=== PATIENT | female | born 1950 | race Caucasian/White ===

== ENCOUNTER 2018-02-28 09:00 | Inpatient (IN) ==
[2018-02-28] MEDS ORDERED: Chlorhexidine Gluconate 2% 1 Pack (2 Cloths) TOPICAL ONE (11:45)
[2018-02-28] MEDS ORDERED: Metoprolol Tartrate 25 MG Tablet PO ONE (11:45)
[2018-02-28] MEDS ORDERED: Sodium Chlor 0.9% Inj 500 ML IV.CONT ONE (11:45)
[2018-02-28] MEDS ORDERED: Chlorhexidine 4% Topical 120 APPLIC/120 ML Bottle TOPICAL SCH (11:45)
[2018-02-28] MEDS ORDERED: Vancomycin Inj 1,000 MG in Sodium Chlor 0.9% Inj 250 ML IV.SIG SCH (12:00)
[2018-02-28] MEDS ORDERED: ceFAZolin 2 GM Premix Inj 2 GM/50 ML PIGGYBACK IV.SIG SCH (12:00)
[2018-02-28] MEDS ORDERED: Sodium Chlor 0.9% Inj 40 ML, Bupivacaine Liposo PF 1.3% Inj 20 ML, Bupivacaine/Epi PF 0... P-ARTICULR SCH ×3 (12:30)
[2018-02-28] MEDS ORDERED: Tranexamic Acid Inj 656 MG in Sodium Chlor 0.9% Inj 100 ML IV.SIG SCH (12:30)
[2018-02-28] MEDS ORDERED: Bisacodyl 10 MG Supp RECTAL PRN (14:47)
[2018-02-28] MEDS ORDERED: Morphine Inj 4 MG/ML Vial IV.PUSH PRN (14:47)
[2018-02-28] MEDS ORDERED: Temazepam 15 MG Capsule PO PRN (14:47)
[2018-02-28] MEDS ORDERED: Post-op Orders (for Pharmacy) OTHER STA (14:47)
--- NOTE | 2018-02-28 17:01 | P.OP ---
- Preoperative Diagnosis (1) Osteoarthritis of left hip - Postoperative Diagnosis (1) Osteoarthritis of left hip Date of procedure: 02/28/18 Procedure: Left total hip arthroplasty, direct anterior exposure Anesthesia: GETA, local Surgeon: Juan Junior MD Legal Coordinator: Nila Bouhcer PA-C Operation and Findings: EBL: 400 cc INDICATION: This patient is a 67-year-old female with severe left hip pain. She has evidence of global arthritis of the left hip. She is developing some collapse likely consistent with avascular necrosis or advanced collapse related to arthritis. She now presents for surgical treatment. NOTE: Nila Boucher PA-C was present for the entire surgical procedure as my assistant to the dean. In my medical opinion her skill and care was necessary for the proper management of this patient. COMPONENTS: COMPANY: [employer] CUP: Energy, 52 mm, 100 series STEM: Corail, standard offset, size 12 HEAD: Metal, 32 mm, +9, 12/14 taper LINER: Altrex, 32, neutral PROCEDURE: This patient was brought to the operating room and anesthetized in the supine position. The patient was positioned on the [place] table with the operative leg extended and the contralateral leg held in proper position. The hip and leg was scrubbed with alcohol followed by Hibiclens followed by ChloraPrep and draped sterilely in the clean air suite. Preoperative fluoroscopic images were utilized. A templating x-ray was obtained and printed to be used during the case. A timeout was done and antibiotics were given within a routine time window. A 4 inch incision was made starting 2 cm distal and 2 cm lateral to the anterior superior iliac spine. The tensor fascia dixon fascia was identified and opened longitudinally in line with the incision. Deep retraction allowed good visualization in the interval between the tensor fascia dixon and the rectus and this was opened further. The posterior fascia was opened. Crossing vessels were coagulated appropriately. The anterior aspect of the hip capsule was identified. Retractors were placed above and below the capsule. The capsule was opened longitudinally. Stay sutures were utilized creating flaps for the anterior capsule. The femoral neck was cut at the right location and completed with an oscillating saw. The head and neck was removed and taken to the back table. The leg was externally rotated 60 degrees and traction placed on the extremity. The labrum was excised. A portion of the capsule was excised. Visibility was excellent. Retractors were positioned. Starting 6 mm from the final size reamer, we began reaming up to 1 mm from the anticipated size. This was visualized under fluoroscopy. A trial cup was positioned. This also was visualized under fluoroscopy and minor adjustments were made. The final preparation with a 52 reamer was utilized. The final cup was positioned in approximately 40 degrees of abduction and 20 degrees of forward flexion. This is visualized under fluoroscopy and was seated into the final position. Position was very satisfactory. A single hole eliminator was positioned followed by the plastic liner. The final solution was excellent. Traction was let off. The leg was brought into neutral rotation. A lifting took was positioned underneath the greater trochanter and proximal femur. The leg was maximally externally rotated and the foot drop to the floor across midline. Retractors were positioned. A box osteotome was used to gain entrance into the top of the femur. The canal was probed with a finder to ensure that we were within the canal. Successive broaching up to the final stem size was accomplished. Trial reduction showed excellent balancing. Adjustments were made. The wound was irrigated copiously and the canal irrigated. The final stem was inserted in proper orientation. A final trial reduction was performed, and the final head was impacted. The hip was reduced and with 60 degrees of external rotation the leg to be dropped to the floor without evidence of anterior subluxation. Intraoperative x-rays were obtained. Local anesthesia was utilized for a field block including posterior capsule, inferior capsule, cephalad capsule, region of the greater trochanter, tensor fascia dixon and subcutaneous tissue. The anterior capsule was repaired with interrupted #2 Tycron sutures. The fascia was run with 0 PDS on a loop. Subcutaneous tissue was approximated 2-0 Vicryl suture and skin with running intradermal 3-0 Vicryl followed by benzoin and Steri-Strips. A sterile dressing was applied. The patient was awakened and taken to the recovery room in satisfactory condition FINDINGS: There was severe osteoarthritis of the left hip. Overall foot was excellent. There is no complication.
--- NOTE | 2018-02-28 17:01 | XR ---
EXAM DATE: 02/28/2018 4:58 PM EST AGE/SEX: 67 years / Female INDICATIONS: Left total hip replacement. CLINICAL DATA: This is the patient's initial encounter. Patient reports that signs and symptoms have been present for 1 day and indicates a pain score of Nonresponsive. MEDICAL/SURGICAL HISTORY: None. None. COMPARISON: No prior exams available for comparison. FINDINGS: Multiple images in the operating room show a left hip arthroplasty being placed. Alignment is normal. No evidence of an acute complication. CONCLUSION: Expected intraoperative appearance left hip arthroplasty. Electronically signed by: Jasvir Dwyer MD Board Certified Radiologist 02/28/2018 4:59 PM EST
[2018-02-28] MEDS ORDERED: *morphine SULFATE 4 MG/ML PERIprocedure ONLY ONE ×3 (17:24→18:24)
[2018-02-28] MEDS ORDERED: fentaNYL Citrate Inj 100 MCG/2 ML Ampul ONE (17:28)
[2018-02-28] MEDS ORDERED: ceFAZolin 1 GM Premix Inj 1 GM/50 ML PIGGYBACK IV.SIG ONE (18:38)
[2018-02-28] MEDS ORDERED: ceFAZolin Inj 1 GM in Sodium Chlor 0.9% Inj 100 ML IV.SIG SCH (19:00)
--- NOTE | 2018-02-28 21:51 | P.DS ---
Date of admission: 02/28/18 10:53 Primary care physician: Jatin Alves MD Attending physician on discharge: Juan Junior Anticipated date of discharge: 03/01/18 Brief History from admission: Ms. Hoffman has had ongoing left hip pain for... DS: Diagnosis - Discharge Diagnosis (1) Osteoarthritis of left hip Status: Acute DS: Medications - Discharge Medications Prescriptions: oxycodone-acetaminophen 1 tab PO Q4H PRN #42 tab PRN Reason: Acute Pain DS: Summary Hospital Course: Surgical treatment was performed on the day of admission without complication. d/c pod#1 percocet, asa, d/c to outpatient PT at [facility] [place] as requested. - Time Spent with Patient Total time spent providing and/or coordinating discharge services: Greater than 30 minutes - Quality: VTE Deep Vein Thrombosis/Pulmonary Embolism Present on Admission: No Exam Vital signs: Vital Signs 02/28/18 11:50 02/28/18 17:20 02/28/18 17:30 Temperature 98.3 F 97.7 F Pulse Rate 65 68 65 Respiratory Rate 16 11 L 11 L Blood Pressure 132/62 111/56 L 105/50 L Pulse Oximetry 100 97 100 02/28/18 17:45 02/28/18 18:00 02/28/18 19:00 Temperature 98.1 F Pulse Rate 67 66 69 Respiratory Rate 13 18 10 L Blood Pressure 104/51 L 117/56 L 125/72 Pulse Oximetry 97 100 100 Intake & Output 02/28/18 02/28/18 03/01/18 06:59 18:59 06:59 Intake Total 1499.56 / 1499.56 Output Total 400 / 400 Balance 1099.56 / 1099.56 Weight 65.6 kg Intake: IV 406.56 / 406.56 Cyklokapron Inj 656 MG In NS 106.56 / 106.56 Inj 100 ML @ 200 mls/hr IV.SIG ONCE KELSEY Rx#:[id number] Vancomycin Inj 1,000 MG In NS 250 / 250 Inj 250 ML @ 250 mls/hr IV.SIG ROOM MANAGER KELSEY Rx#:[id number] Ancef 2 GM Premix Inj 2 gm In 50 / 50 50 ml @ 100 mls/hr IV.SIG ROOM MANAGER KELSEY Rx#:[id number] Anesthesia Amount 1093 / 1093 Output: Estimated Blood Loss 400 / 400 Other: Weight On Admission 65.6 kg Results Labs on day of discharge: Labs from last 24 hours 02/28/18 11:33 Blood Type A Positive Blood Type Recheck Antibody Screen Negative - Impressions ITS Impressions Hip X-Ray 02/28/18 00:00 CONCLUSION: Expected intraoperative appearance left hip arthroplasty. Discharge Plan - Discharge Disposition Patient Disposition: Discharge Home - Discharge Condition Condition: Good - Discharge Order Discharge Orders: Discharge Order (Routine); Ordered 03/01/18 Ordered By: Juan Junior - Physicians Team Primary Care Provider: Jatin Alves Attending Provider: Juan Junior - Rxs /Orders / Referrals /Forms Prescriptions: New aspirin 81 mg Tablet,Chewable 81 mg PO BID 30 Days Qty: 60 RF: 0 oxycodone-acetaminophen 5-325 mg Tablet 1 tab PO Q4H PRN (Reason: Acute Pain) Qty: 42 RF: 0 Continue diclofenac sodium 75 mg Tablet,Delayed Release (Dr/Ec) 75 mg PO BID enalapril maleate 5 mg Tablet 5 mg PO DAILY vuduohqw-huek-QB-calcium-mins [One Daily Women's] 18 mg iron-400 mcg-450 mg Ca Tablet 1 tab PO DAILY turmeric 400 mg Capsule 1 cap PO DAILY Ambulatory Orders / Order Sets / DME: Adjustable Commode 3-in-1 (1 each) (Routine) Location: Determined by Patient Ordered By: Juan Junior Walker With Front Wheels (1 each) (Routine) Location: Determined by Patient Ordered By: Juan Junior Referrals: Jatin lAves MD [Primary Care Provider] - See Instructions - Post Discharge Care Plan Care Plan Goals: Discharge Care Plan Goals for LEFT Total Hip Replacement You had a hip replacement surgery. This means your natural hip was replaced with an artificial joint (prosthesis). You may be recovering at home or in a rehabilitation facility. Either way, you must take care of your new hip. Here are some goals to help you heal well. Directions to Meet your Goals: 1. Activity & Exercises: * Take pain medicine as directed by your doctor. * Dont drive until your doctor says its OK. And never drive while taking opioid pain medicine. * Wear the support stockings you were given in the hospital as directed by your surgeon. They are usually recommended for at least 2 weeks following surgery. * Dont sit for more than 30 to 45 minutes at one time. * Dont lean forward while sitting. * Dont cross your legs. * Keep your feet flat on the floor. Dont turn your foot or leg inward. This stresses your hip joint. * If needed consider using an elevated toilet seat for 4 weeks after surgery. * Nap if you are tired, but dont stay in bed all day. * Sit on a firm cushion when you ride in a car and avoid sitting too low. Try not to bend your hip too much when getting in and out of the car. 2. Prevent Falls/Injury: * Follow your doctors orders regarding how much weight to put on the affected leg. * Dont bend at the hip when you bend over. Don't bend at the waist to put on socks and shoes. And avoid picking up items from the floor. * Use a cane, crutches, a walker, or handrails until your balance, flexibility, and strength improve. And remember to ask for help from others when you need it. * Free up your hands so that you can use them to keep balance. Use a archie pack , apron, or pockets to carry things. * Arrange your household to keep the items you need handy. Keep everything else out of the way. * Remove items that may cause you to fall, such as throw rugs and electrical cords. * Use nonslip bath mats, grab bars, an elevated toilet seat, and a shower chair in your bathroom * Sit on a shower stool or chair when you shower to keep from falling. 3. Precautions: * Prevent infection. Any infection will need to be treated immediately. Call your doctor right away if you think you might have an infection. * Tell your dentist that you have an artificial joint and take antibiotics as prescribed before any dental work. * Tell all your healthcare providers about your artificial joint before any medical procedure. * Maintain a healthy weight. Get help to lose any extra pounds. Added body weight puts stress on the joints. 4. Incision Care: * Prevent infection by washing your hands often. If an infection occurs, it will need to be treated right away. * Call your doctor right away if you think you may have an infection. Symptoms include a fever or an incision that leaks white, green, or yellow fluid. * Don't soak your incision in water until your doctor says its OK. This means no hot tubs, bathtubs, or swimming pools. * Follow your doctor's instructions for changing the dressing. * Dont rub the incision, or apply creams or lotions to it. * If you notice any redness or drainage around the bandage site, contact your surgeon's office immediately. 5. Follow-Up: Do Not miss your follow-up appointment. Keep up with all your appointments and yearly check ups When to call your doctor: Call your doctor right away if you have: Hip pain gets worse Pain or swelling in your calf or leg not related to your incision Tenderness or redness in your calf Fever of 100.4F (38C) or higher, or as directed by your healthcare provider Shaking chills Swelling or redness at the incision site gets worse Fluid draining from the incision Call 911: Call 911 right away if you have: Chest pain Shortness of breath Any pain or tenderness in your calf
[2018-02-28] MEDS: Senna/Docusate Sodium 8.6/50 MG Tablet PO SCH (22:05)
[2018-02-28] MEDS: Multivitamin/Minerals Therapeutic Tablet PO SCH (22:05)
[2018-03-01] MEDS: ceFAZolin Inj 1 GM in Sodium Chlor 0.9% Inj 100 ML IV.SIG SCH ×2 (00:45→06:56)
[2018-03-01 07:01] LABS: Hematocrit 27.3 % (35.0-46.0); Hemoglobin 9.7 gm/dL (11.6-15.3)
[2018-03-01] MEDS: Senna/Docusate Sodium 8.6/50 MG Tablet PO SCH (10:17)
[2018-03-01] MEDS: Multivitamin/Minerals Therapeutic Tablet PO SCH (10:17)
[2018-03-01 13:42] VITALS: BP 120/57; PULSE 74; RESP 16; TEMP 97.9; O2SAT 97
--- NOTE | 2018-03-01 14:01 | P.PNOP ---
Subjective Interval history: She was examined in the PT classroom. She states she is doing well. Her hip pain is well controlled. She is eager to discharge home. No other concerns or complaints. Physical Exam Vital signs: Vital Signs 02/28/18 17:20 02/28/18 17:30 02/28/18 17:45 Temperature 97.7 F Pulse Rate 68 65 67 Respiratory Rate 11 L 11 L 13 Blood Pressure 111/56 L 105/50 L 104/51 L Pulse Oximetry 97 100 97 02/28/18 18:00 02/28/18 19:00 02/28/18 19:36 Temperature 98.1 F 97.8 F Pulse Rate 66 69 79 Respiratory Rate 18 10 L 20 Blood Pressure 117/56 L 125/72 165/88 H Pulse Oximetry 100 100 100 03/01/18 00:07 03/01/18 05:02 03/01/18 08:00 Temperature 97.9 F 98.2 F 98 F Pulse Rate 78 92 H 83 Respiratory Rate 16 18 18 Blood Pressure 120/53 L 118/58 L 114/56 L Pulse Oximetry 98 95 95 03/01/18 12:00 Temperature 97.9 F Pulse Rate 74 Respiratory Rate 16 Blood Pressure 120/57 L Pulse Oximetry 97 Intake & Output 02/28/18 03/01/18 03/01/18 18:59 06:59 18:59 Intake Total 1499.56 / 1499.56 580 / 580 Output Total 400 / 400 Balance 1099.56 / 1099.56 580 / 580 Weight 65.6 kg 70.4 kg Intake: IV 406.56 / 406.56 100 / 100 Cyklokapron Inj 656 MG In NS 106.56 / 106.56 Inj 100 ML @ 200 mls/hr IV.SIG ONCE KELSEY Rx#:[id number] Vancomycin Inj 1,000 MG In NS 250 / 250 Inj 250 ML @ 250 mls/hr IV.SIG SENIOR FINANCIAL REPORTING ACCOUNTANT KELSEY Rx#:[id number] Ancef 2 GM Premix Inj 2 gm In 50 / 50 50 ml @ 100 mls/hr IV.SIG SENIOR FINANCIAL REPORTING ACCOUNTANT KELSEY Rx#:[id number] Ancef Inj 1 GM In NS Inj 100 ML 100 / 100 @ 200 mls/hr IV.SIG Q6H KELSEY Rx #:[id number] Oral 480 / 480 Anesthesia Amount 1093 / 1093 Output: Estimated Blood Loss 400 / 400 Other: # Voids 1 Date of Last Bowel Movement 02/28/18 Weight On Admission 65.6 kg Narrative: Sitting in chair seated behind her No acute distress LLE Hip dressing c/d/i, no drainage, mild swelling, no erythema +motor at/ehl distal, +sens, +nvi Neg homans - Constitutional no acute distress Results - Labs CBC & Chem 7: 03/01/18 05:39 Laboratory Results - last 24 hr 03/01/18 05:39 Hgb 9.7 L Hct 27.3 L - Imaging Impressions Hip X-Ray 02/28/18 00:00 CONCLUSION: Expected intraoperative appearance left hip arthroplasty. - Procedures Left total hip arthroplasty, anterior approach Assessment and Plan - Ortho Post Op Day # 1 - Problem List (1) Osteoarthritis of left hip Code(s): M16.12 - Unilateral primary osteoarthritis, left hip Status: Acute - Assessment and Plan pod#1 s/p L LIZETT, anterior Ortho stable. Doing well. Ok to d/c home after PT class today. [place] [facility] [place] PO pain control as needed. ASA 81mg bid. Hold dressing changes unless saturated. PT - WBAT RLE. LIZETT protocol. Ice bid as tolerated. Compression stockings bilaterally for 2 weeks. Follow up in 2 weeks as scheduled.
== END 2018-03-01 15:07 | disposition home or self-care (01) | DRG 470 ==
LOC: HSDI 10:53 → N06 20:58
PROVIDERS: ADMIT Orthopaedic Surgery Orthopaedic Surgery of the Spine; ATTEND Orthopaedic Surgery Orthopaedic Surgery of the Spine
CPT/HCPCS: 73502; 76000; 85014; 85018; 86850; 86900; 86901; 94150; 97150; 97162; C1776; C9290; J0690; J2250; J2270; J3010; J3370; J7050; J7120